=== PATIENT | female | born 1995 | race Caucasian/White ===

== ENCOUNTER 2020-06-20 12:24 | Emergency (ER) | payer OTHER ==
[~2020-06-20] VITALS: Ht 162.6 cm; Wt 66.2 kg
[~2020-06-20 12:24] MED LIST: AMOXICILLIN
[2020-06-20 12:37] VITALS: BP 127/77
[2020-06-20] MEDS ORDERED: TESSALON PERLE100 M1 PO (14:03)
== END 2020-06-20 14:17 | disposition home or self-care (01) ==
LOC: M.ERS 12:24
DX: J02.9 Acute pharyngitis, unspecified (principal); Z20.828 Contact with and (suspected) exposure to other viral communicable diseases; Z98.890 Other specified postprocedural states